=== PATIENT | female | born 1985 ===

== ENCOUNTER 2023-10-23 09:22 | Outpatient (AMB) | payer OTHER, SELFPAY ==
--- NOTE | 2023-10-23 09:34 | A.OFFVIS_ITS ---
Vital Signs 10/23/23 09:35 Height 5 ft 6 in Weight 119 lb 0.794 oz BMI 19.2 BP 120/66 Blood Pressure Location Lt brachial Position Sitting Pulse 81 Intake Visit Reasons: family hx colon cancer Intake Note: Gianna presents in the office as a new patient for blood in the blood. CC: She states that she is here today because colon cancer runs in the family. She has had IBS her entire life. 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 Pt's younger brother was diagnosed with colon cancer in 2 years ago. Obv, the pt has been recommended to have colonoscopy but the main barrier is the prep. Pt has a phobia of vomiting and therefore has remained apprehensive re it. Has been seen by 2 GIs already but has not been satisfied re the prep instructions. [facility] Family History (Updated 10/23/23 @ 09:36 by MONI Mabry) Brother Colon cancer Review of Systems Const All systems reviewed & are unremarkable except as noted in HPI and below Physical Exam Vital Signs: Last Vital Signs Pulse 81 10/23/23 09:35 BP 120/66 10/23/23 09:35 BMI result Body Mass Index 19.2 No apparent distress Nonicteric Abdomen soft, nondistended Alert and oriented x3, normal gait Assessment & Plan Assessment & Plan (1) Family history of colon cancer: Code(s): Z80.0 - Family history of malignant neoplasm of digestive organs Category: Medical Plan Reviewed different options of prep with the pt including miralax/gatorade prep (may be more palatable) and suprep (small volume so may cause less bloating/cramping). She was also given tips of tolerating the prep a bit better such as keeping it chilled, sipping through straw, using lemon/jackie etc. Plan: - Suprep prescribed - Pt also aware to keep miralax/gatorade prep on hand as back up (available OTC) - Instructions for both were reviewed in case unable to tolerate suprep. - [facility] to be booked Follow up as needed. Medications: New sodium,potassium,mag sulfates 17.5-3.13-1.6 gram (Suprep Bowel Prep Kit) DILUTE as per instructions 354 mL 0RF Coding Level of Care Code New Pt Level 3 (28998) Diagnoses Family history of colon cancer Z80.0
[2023-10-23 09:35] VITALS: BP 120/66; PULSE 81; BMI 19.2
== END 2023-10-23 10:16 | disposition home or self-care (01) ==
PROVIDERS: PCP Student in an Organized Health Care Education/Training Program; Visit Provider Internal Medicine
DX: Z80.0 Family history of malignant neoplasm of digestive organs (principal)
CPT/HCPCS: 99203

== ENCOUNTER → 2023-10-23 09:22 | Outpatient (BNVA) | payer OTHER, SELFPAY | PROVIDERS: PCP Student in an Organized Health Care Education/Training Program; Visit Provider Internal Medicine ==

== ENCOUNTER 2024-02-27 07:46 | Day surgery (SDC) | payer OTHER, SELFPAY ==
[2024-02-24 11:42] VITALS: BMI 19.2
[2024-02-27 08:07] VITALS: BMI 19.7
[2024-02-27 08:19] LABS: UPreg QC Valid YES; Urine Pregnancy NEGATIVE (NEGATIVE)
[2024-02-27 08:21] VITALS: BP 132/84; PULSE 91; RESP 14; TEMP 37.6; O2SAT 100
--- NOTE | 2024-02-27 08:34 | MHC.SHP ---
Pre-Procedural Eval Section A - 24 Hr Update-Section A only Date of Service: 02/27/24 Section B - Complete if H&P > 30 days Chief Complaint: Family history of malignant neoplasm of digestive Details of Present Illness: Brother Colon cancer Present Medications: see Short Stay Collaborative assessment Allergies: Allergies Allergy/AdvReac Type Severity Reaction Status Date / Time No Known Allergies Allergy Verified 02/27/24 08:04 Review of Systems Review of Systems Comment: Ten point ROS negative Exam Exam Comment: Gen appear: No acute distress HEENT: no icterus Chest: No overt resp distress Abd: soft, nontender, nondistended Psych: Stable affect, answering questions appropriately Neuro: A/Ox3 noted to move all extremities spontaneously Ext: no peripheral edema Plan Diagnosis/Plan: Unchanged I have reviewed the history and physical and performed a pertinent physical examination on my patient. No changes have occurred unless specified. Time Spent With Patient Time: Total time managing care of this patient today ____ minutes.
[2024-02-27] MEDS: Lactated Ringers 1,000 ML 80 ML IVCONT (08:36)
--- NOTE | 2024-02-27 08:56 | P.CONAN_ITS ---
PMF Active Problems Active Problems: All Active Problems Family history of colon cancer (Acute) Past Medical History Functional capacity: independent ambulation Patient : No Family History Family History Brother Colon cancer Family history of problems with anesthesia: No Surgical History Surgical History History of tubal ligation History of Problems with Anesthesia: No Social History Social History Are you a primary health care law specialist to a significant other at home: No Do you presently have visiting nurse or other home services: No Patient Tobacco Use Status: Never used Tobacco Meds Allergies Allergy/AdvReac Type Severity Reaction Status Date / Time No Known Allergies Allergy Verified 02/27/24 08:04 Active Medications: Current Medications Lactated Ringer's (Lr) 1,000 mls @ 80 mls/hr IVCONT .[id number] KAL Last Admin: 02/27/24 08:36 Dose: 80 mls/hr Home Medications ?Medication ?Instructions ?Recorded ?Confirmed ?Last Taken ?Type loratadine 10 mg tablet 10 mg PO DAILY 10/23/23 02/27/24 Unknown History Exam Height,Weight and Vital Signs: Height 5 ft 6 in Weight 55.338 kg Last Vital Signs Temp 99.6 F 02/27/24 08:21 Pulse 91 02/27/24 08:21 Resp 14 02/27/24 08:21 BP 132/84 02/27/24 08:21 Pulse Ox 100 02/27/24 08:21 O2 Del Method Room Air 02/27/24 08:21 Pertinent Lab Results Pertinent Lab Results: Laboratory Tests 02/27/24 08:00 Urine Test NEGATIVE Airway TM Dist: >3cm Neck ROM: Full Heart: RRR Lungs: CTA Assessment and Plan Assessment Anesthesia Assessment: Anesthesia Plan Discussed and Chart Reviewed Final Anesthetic Review Family History of Problems with Anesthesia: No History of Problems with Anesthesia: No NPO: Yes ASA Class: II Final Preanesthetic Review: Meds/Allgs Chart Reviewed, Consent Obtained/Reviewed and Anes Risks/Benef Reviewed Patient Risk: Low Procedure Risk: Low Anesthetic Plan Anesthetic Plan: MAC: Disposition: Standard PACU
--- NOTE | 2024-02-27 09:41 | P.OPN-COLO_ITS ---
Colonoscopy Operative Note Operative Note Date of Service: 02/27/24 Narrative: Procedure: Colonoscopy Indication: Fam hx of CRC Endoscopist: Susan Baxter MD Anesthesia Provider: Tameka Mackey MD Anesthesia type: MAC Instrument: Olympus [id number]-H190L Consent: Indication, risks vs benefits, and alternatives were discussed with the patient who gave written informed consent to proceed. EKG, pulse, pulse oximetry and blood pressure were monitored throughout the procedure. Please see anesthesia flowsheet. Procedure: The patient was brought to the procedure room and placed in the left lateral decubitus position. IV medications were administered by the anesthesia provider in attendance. A digital rectal exam was performed which was abnormal due to finding of hemorrhoids. A distal attachment cap was affixed to the tip of the colonoscope which was then inserted through the anus and advanced through the colon to the cecum at 75 cm,and terminal ileum. Appendiceal orifice and ileocecal valve were identified. Mucosa was carefully examined under high definition white light as the instrument was slowly withdrawn in a retrograde panoramic fashion. Retroflexion was performed in rectum. The procedure was not difficult. There were no immediate obvious complications. The quality of the prep was BBPS: 3+2+3 = adequate Withdrawal time 7 minutes. Limitations: No limitations. Findings: Mucosa: Normal to cecum and terminal ileum. Protruding lesions: * Large internal hemorrhoids without stigmata of recent bleeding. Impression: 1. Normal colon and terminal ileum mucosa 2. Internal and external hemorrhoids Recommendations: - repeat colonoscopy in 5 years due to family history
[2024-02-27 10:05] VITALS: BP 89/54; PULSE 64; RESP 16; TEMP 36.9; O2SAT 97
[2024-02-27 10:20] VITALS: BP 102/73; PULSE 82; RESP 16; O2SAT 99
[2024-02-27 10:35] VITALS: BP 109/67; PULSE 84; RESP 16; TEMP 36.9; O2SAT 100
[2024-02-27 10:50] VITALS: BP 113/78; PULSE 84; RESP 16; TEMP 36.9; O2SAT 99
--- NOTE | 2024-02-27 11:47 | HO.POSTANES ---
Post Anesthesia Evaluation Post Anesthesia Evaluation Date of Service: 02/27/24 Vital Signs: Vital Signs Temp Pulse Resp BP Pulse Ox O2 Del Method 02/27/24 10:50 98.5 F 84 16 113/78 99 Room Air 02/27/24 10:35 98.5 F 84 16 109/67 100 Room Air 02/27/24 10:20 82 16 102/73 99 Room Air 02/27/24 10:05 98.5 F 64 16 89/54 L 97 Room Air 02/27/24 08:21 99.6 F 91 14 132/84 100 Room Air Anesthesia: Monitored Mental Status: Awake Pain Control: Satisfactory Nausea/Vomiting: None Hydration: Adequate Anesthesia-Related Issues: No Anes. Related Issues
== END 2024-02-27 11:07 | disposition home or self-care (01) ==
PROVIDERS: Anesthesiology; PCP Student in an Organized Health Care Education/Training Program; Visit Provider Internal Medicine
PROC: 0DJD8ZZ Inspection of Lower Intestinal Tract, Via Natural or Artificial Opening Endoscopic (ICD-10-PCS; CPT 45378; principal; 2024-02-27 09:20)
DX: Z12.11 Encounter for screening for malignant neoplasm of colon (principal); Z80.0 Family history of malignant neoplasm of digestive organs; K64.8 Other hemorrhoids; K64.4 Residual hemorrhoidal skin tags; K58.9 Irritable bowel syndrome, unspecified; Z79.899 Other long term (current) drug therapy; Z98.51 Tubal ligation status
CPT/HCPCS: 45378; 81025; J2003; J2704

== ENCOUNTER → 2024-02-27 07:46 | Outpatient (BNV) | payer OTHER, SELFPAY | PROVIDERS: PCP Student in an Organized Health Care Education/Training Program; Visit Provider Internal Medicine | DX: Z12.11 Encounter for screening for malignant neoplasm of colon (principal); Z80.0 Family history of malignant neoplasm of digestive organs; K64.8 Other hemorrhoids | CPT/HCPCS: 45378 ==